=== PATIENT | female | born 1970 | race Caucasian/White ===

== ENCOUNTER 2016-05-13 07:06 | Day surgery (SDC) | payer OTHER ==
[~2016-05-13 07:06] MED LIST: ASPI81CH CHEW; ATEN25TA PO; BUTATAB6 PO
[2016-05-13] MEDS ORDERED: PROPOFOL 200 MG/20 ML AMP IV ONE (07:25)
[2016-05-13] MEDS ORDERED: INSULIN HUMAN REGULAR 1,000 UNITS/10 ML VIAL SQ PRN (08:15)
[2016-05-13] MEDS ORDERED: METOPROLOL TARTRATE 25 MG TAB PO PRN (08:15)
[2016-05-13] MEDS ORDERED: LACTATED RINGER'S 1000 ML IV SCH (08:15)
[2016-05-13] MEDS ORDERED: SODIUM CHLORID 0.9% 500 ML IV SCH (08:15)
[2016-05-13 08:40] LABS: BETA HCG QUANT LESS THAN 1 MIU/ML (0-5)
[2016-05-13] MEDS ORDERED: MISCELLANEOUS NURSING INFORMATION XX PRN (09:15)
--- NOTE | 2016-05-13 17:42 | EKG ---
Date Performed: 05/13/2016 Time Performed: 07:41:58 PTAGE: 45 years EKG: Sinus rhythm Incomplete RBBB Poor R wave progression - probable normal variant Compared to prior tracing no signi ficant change Borderline ECG PREVIOUS TRACING : 03/22/2016 11.21 DOCTOR: Artur Soto Interpretating Date/Time 05/13/2016 17:41:13
--- NOTE | 2016-06-12 16:31 | ETE ---
Study Study Date:05/13/2016 STUDY CONCLUSIONS SUMMARY - Left ventricle: The cavity size was normal. Wall thickness was normal. Systolic function was normal. The estimated ejection fraction was in the range of 60% to 65%. Wall motion was normal; there were no regional wall motion abnormalities. - Aortic valve: No evidence of vegetation. - Mitral valve: No evidence of vegetation. - Left atrium: No evidence of thrombus in the atrial cavity or appendage. - Right atrium: No evidence of thrombus in the atrial cavity or appendage. - Atrial septum: No defect or patent foramen ovale was identified. - Tricuspid valve: No evidence of vegetation. - Pulmonic valve: No evidence of vegetation. If LV function is below 40, please consider prescribing an ACEI or ARB or document rationale for non-use. PROCEDURE DATA Consent: The risks, benefits, and alternatives to the procedure were explained to the patient and informed consent was obtained. Procedure: Initial setup. The patient was brought to the laboratory in the fasting state. Intravenous access was obtained. Surface ECG leads and pulse oximetric signals were monitored. Sedation. Conscious sedation was administered by cardiology staff. Transesophageal echocardiography. Topical anesthesia was obtained using viscous lidocaine. A transesophageal probe was inserted by the attending bus driver supervisor. Image quality was good. Intravenous contrast (agitated saline) was administered. Study completion: All IVs inserted during the procedure were removed. The patient tolerated the procedure well. There were no complications. Transesophageal echocardiography. 2D, complete spectral Doppler, and color Doppler. CARDIAC ANATOMY LEFT VENTRICLE: The cavity size was normal. Wall thickness was normal. Systolic function was normal. The estimated ejection fraction was in the range of 60% to 65%. Wall motion was normal; there were no regional wall motion abnormalities. AORTIC VALVE: Structurally normal valve. Trileaflet; normal thickness leaflets. Cusp separation was normal. No evidence of vegetation. Doppler: No significant regurgitation. Aorta: - There was no atheroma. There was no evidence for dissection. Aortic root: The aortic root was not dilated. Ascending aorta: The ascending aorta was normal in size. Aortic arch: The aortic arch was normal in size. Descending aorta: The descending aorta was normal in size. MITRAL VALVE: Structurally normal valve. Leaflet separation was normal. No evidence of vegetation. Doppler: Trace regurgitation. LEFT ATRIUM: The atrium was normal in size. No evidence of thrombus in the atrial cavity or appendage. The appendage was morphologically a left appendage, multilobulated, and of normal size. Emptying velocity was normal. ATRIAL SEPTUM: No defect or patent foramen ovale was identified. RIGHT VENTRICLE: The cavity size was normal. Wall thickness was normal. Systolic function was normal. PULMONIC VALVE: Structurally normal valve. No evidence of vegetation. TRICUSPID VALVE: Structurally normal valve. Leaflet separation was normal. No evidence of vegetation. Doppler: Trace regurgitation. PULMONARY ARTERY: The main pulmonary artery was normal-sized. RIGHT ATRIUM: The atrium was normal in size. No evidence of thrombus in the atrial cavity or appendage. The appendage was morphologically a right appendage. PERICARDIUM: There was no pericardial effusion. DOPPLER MEASUREMENTS ADULT NORMAL Tricuspid valve Regurgitant peak velocity 248 cm/s Peak RV-RA gradient, S 25 mm Hg Maximal regurgitant velocity 248 cm/s LEGEND: Mean values are shown as u=mean value. Asterisk (*) jaime values outside specified normal range. Prepared and signed by Sergio Saleh [id number]
[2016-06-24] MEDS ORDERED: HYDR12.57 PO (11:51)
[2016-07-29] MEDS ORDERED: VERA40TA PO (10:04)
[2016-08-07] MEDS ORDERED: ATEN25TA PO (17:41)
[2016-09-01] MEDS ORDERED: ATEN25TA PO (09:25)
[2016-09-01] MEDS ORDERED: ASPI81CH CHEW (09:25)
== END 2016-05-13 10:23 | disposition home or self-care (01) ==
LOC: HDOC 07:06 → HDIC 07:11 → HDOC 10:23
PROVIDERS: ATTEND Internal Medicine
DX: G45.9 Transient cerebral ischemic attack, unspecified (principal); I45.10 Unspecified right bundle-branch block
CPT/HCPCS: 84702; 93005; 93312; 93320; 93325